=== PATIENT | female | born 1975 | race Caucasian/White ===

== ENCOUNTER 2017-04-29 13:13 | Emergency (ER) | payer OTHER ==
--- NOTE | 2017-04-29 13:49 | ED Physician Chart ---
ED Chief Complaint/HPI - Patient Information Date Seen:: 04/29/17 Time Seen:: 13:39 Chief Complaint:: Abdominal pain History of Present Illness:: 41 yo female, , had low abdominal pain and tenderness for 10 days. The tenderness could be 7/10 on palpation and would decrease to 0-1/10 without palpation. Denied N/V. She had urinary frequency and mild burning sensation. She had regular menstrual periods. She had an IUD for 8 years. She had intermittent postcoidal vaginal spotting for 5 months. She had similar pain 2 years ago and was diagnosed with ovarian cyst. Allergies:: Allergies Allergy/AdvReac Type Severity Reaction Status Date / Time No Known Allergies Allergy Verified 04/29/17 13:19 Vitals:: Vital Signs - 8 hr 04/29/17 13:19 Temp 98.7 F HR 73 RR 16 BP 124/94 O2 Sat % 98 ED Review of Systems - Review of Systems General/Constitutional: No fever Skin: No skin lesions Head: No headache Eyes: No loss of vision ENT: No earache Neck: No neck pain Cardio Vascular: No chest pain Pulmonary: No SOB GI: No nausea, No vomiting G/U: Frequency, No hematuria Musculoskeletal: No bone or joint pain ED Past Medical History - Past Medical History Past Medical History: Other (right ovarian cyst) Social History: Non Smoker, No Alcohol, No Drug Use Surgical History: (x1) Family Medical History - Family Member Father Hx Family Cancer: No Hx Family Coronary Artery Disease: No Hx Family Hypertension: No Hx Family Diabetes: No Hx Family Seizures: No Hx Family AIDS: No Hx Family COPD: No ED Physical Exam - Physical Examination General/Constitutional: Awake, Alert Head: Atraumatic Eyes: PERRL, EOMI Skin: No ecchymosis Neck: No nuchal rigidity Respiratory: Clear to Auscultation, No Wheeze/Rhonchi/Rales Cardio Vascular: RRR, No murmur, gallop, rubs, NL S1 S2 Other GI comments:: Low abdominal/suprapubic tenderness Other comments:: mild left CVA tenderness Extremities: normal strength in all extremities ( ) Neuro/Psych: No focal deficits ED Assessment - Assessment General Assessment: UTI Assessment/Comments:: Rocephin NS 1L bolus x 1 D/c home Bactrim DS Bid x 5 days F/u PCP or return to ER if symptoms worsen ED Septic Shock - . Is Septic Shock (SBP<90, OR Lactate>4 mmol\L) present?: No - <6hrs of presentation: Vital Signs: Vital Signs - 8 hr 04/29/17 13:19 Temp 98.7 F HR 73 RR 16 BP 124/94 O2 Sat % 98 ED Reassessment (Disposition) - Reassessment Reassessment Condition:: Improved - Patient Disposition Discharge/Transfer:: Home ED Discharge Plan - Patient Disposition Prescriptions: Sulfamethoxazole/TMP [Bactrim Ds] 1 tab PO BID #10 tab Instructions: Urinary Retention, Acute, Female
[2017-04-29 14:09] LABS: URINE MICROSCOPIC INDICATED? YES; URINE SOURCE RANDOM
[2017-04-29 14:11] LABS: URINE BILIRUBIN NEGATIVE (NEGATIVE); URINE BLOOD MODERATE (NEGATIVE); URINE GLUCOSE (UA) NEGATIVE (NEGATIVE); URINE KETONE NEGATIVE (NEGATIVE); URINE LEUKOCYTE ESTERASE LARGE (NEGATIVE); URINE NITRATE NEGATIVE (NEGATIVE); URINE PH 6.5 (4.6 - 8.0); URINE PROTEIN NEGATIVE (NEGATIVE); URINE UROBILINOGEN 0.2 E.U./dL (0.2 - 1.0)
[2017-04-29 14:11] LABS: % BASOPHILS 0.7 % (0.0-2.0); % EOSINOPHILS 1.9 % (0.0-5.0); % LYMPHOCYTES 35.6 % (20.0-50.0); % MONOCYTES 4.5 % (2.0-10.0); % NEUTROPHILS 57.3 % (40.0-80.0); BASOPHILE ABSOLUTE 0.1 Th/cumm (0-0.2); EOSINOPHILE ABSOLUTE 0.1 Th/cmm (0.1-0.4); HEMATOCRIT 43.2 % (41.0-60); HEMOGLOBIN 14.2 gm/dL (12-16); LYMPHOCYTE ABSOLUTE 2.7 Th/cmm (1.5-3.0); MEAN CELL VOLUME 84.3 fl (81-100); MEAN CORPUSCULAR HEMOGLOBIN 27.6 pg (27.0-31.0); MEAN CORPUSCULAR HGB CONC 32.7 pg (28.0-36.0); MEAN PLATELET VOLUME 8.8 fl; MONOCYTE ABSOLUTE 0.3 Th/cmm (0.3-1.0); NEUTROPHILE ABSOLUTE 4.5 Th/cmm (1.8-8.0); PLATELET COUNT 282 Th/cmm (150-400); RED BLOOD COUNT 5.13 Mil/cmm (3.80-5.10); RED CELL DISTRIBUTION WIDTH 12.4 % (11.5-20.0); WHITE BLOOD COUNT 7.7 Th/cmm (4.8-10.8)
[2017-04-29 14:27] LABS: URINE CLARITY HAZY (CLEAR); URINE COLOR YELLOW
[2017-04-29 14:27] LABS: ALB/GLOB RATIO 1.5 (1.0-1.8); ALBUMIN 4.6 gm/dL (3.7-5.3); ALKALINE PHOSPHATASE 35 U/L (34-104); ANION GAP 11.7 (7.0-16.0); BILIRUBIN,TOTAL 0.5 mg/dL (0.3-1.0); BUN - UREA NITROGEN 11 mg/dL (7-25); CALCIUM SERUM 9.8 mg/dL (8.6-10.3); CARBON DIOXIDE 22.4 mEq/L (21.0-31.0); CHLORIDE 103 mEq/L (98-107); CREATININE - SERUM 0.8 mg/dL (0.6-1.2); GFR AFRICAN-AMERICAN > 60.0 ml/min (>90); GFR NON AFRICAN-AMERICAN > 60.0 ml/min; GLUCOSE 94 mg/dL (70-105); POTASSIUM SERUM 3.1 mEq/L (3.5-5.1); SGOT 16 U/L (13-39); SGPT/ALT 14 U/L (7-52); SODIUM SERUM 134 mEq/L (136-145); TOTAL PROTEIN,SERUM 7.6 gm/dL (6.0-8.3)
[2017-04-29 14:29] LABS: URINE BACTERIA FEW /hpf (NONE SEEN); URINE EPITHELIAL CELLS NONE SEEN /lpf (FEW)
[2017-04-29] MEDS ORDERED: cefTRIAXone 1 GM in Sodium Chloride 0.9% 50 ML IV ONE (14:32)
[2017-04-29] MEDS ORDERED: Sodium Chloride 0.9% 1,000 ML IV ONE (14:40)
[2017-04-29] MEDS ORDERED: Sulfamethoxazole/TMP 800/160mg Tab PO SCH (17:00)
--- NOTE | 2017-04-30 09:43 | Diagnostic Imaging Report ---
Abdominal ultrasound HISTORY: Pain The liver exhibits a normal size with a homogeneous parenchyma. No focal lesions. The gallbladder appears normal. No calculi are seen. No biliary dilatation. The pancreas cannot be seen due to bowel gas. The kidneys appear normal bilaterally. No other retroperitoneal or intra-abdominal abnormalities. IMPRESSION: Negative examination.
== END 2017-04-29 16:20 | disposition home or self-care (01) ==
LOC: ER 13:13
DX: N39.0 Urinary tract infection, site not specified (principal)
CPT/HCPCS: 99285; 96365; 76700; 36415; 85025; 87086; 81001; 80053; J0696; J7030

== ENCOUNTER 2017-06-18 15:53 | Emergency (ER) | payer OTHER ==
[2017-06-18 16:14] LABS: URINE MICROSCOPIC INDICATED? YES; URINE SOURCE CLEAN C
[2017-06-18 16:23] LABS: URINE BILIRUBIN NEGATIVE (NEGATIVE); URINE BLOOD MODERATE (NEGATIVE); URINE GLUCOSE (UA) NEGATIVE (NEGATIVE); URINE KETONE TRACE mg/dL (NEGATIVE); URINE LEUKOCYTE ESTERASE NEGATIVE (NEGATIVE); URINE NITRATE NEGATIVE (NEGATIVE); URINE PH 5.5 (4.6 - 8.0); URINE PROTEIN NEGATIVE (NEGATIVE); URINE UROBILINOGEN 0.2 E.U./dL (0.2 - 1.0)
[2017-06-18 16:27] LABS: URINE CLARITY CLEAR (CLEAR); URINE COLOR YELLOW
[2017-06-18 16:28] LABS: URINE BACTERIA FEW /hpf (NONE SEEN); URINE EPITHELIAL CELLS FEW /lpf (FEW); URINE WBC 0-2 /hpf (0-5)
--- NOTE | 2017-06-18 16:36 | ED Physician Chart ---
ED Chief Complaint/HPI - Patient Information Date Seen:: 06/18/17 Time Seen:: 16:33 Chief Complaint:: MICROSCOPIC HEMATURIA noted by her doctor. Allergies:: Allergies Allergy/AdvReac Type Severity Reaction Status Date / Time No Known Allergies Allergy Verified 04/29/17 13:19 Vitals:: Vital Signs - 8 hr 06/18/17 16:01 Temp 98.3 F HR 83 RR 14 BP 134/83 O2 Sat % 100 ED Review of Systems - Review of Systems General/Constitutional: No fever, No chills, No weight loss, No weakness, No diaphoresis, No loss of appetite Head: No light-headedness Eyes: No loss of vision ENT: No nasal drainage, No sore throat Neck: No swelling, No stiffness Cardio Vascular: No chest pain, No palpitations, No PND, No edema Pulmonary: No SOB, No cough, No sputum, No wheezing GI: No nausea, No vomiting, No diarrhea, No constipation, No hematemesis G/U: No dysuria, No frequency, Other (HEMATURIA ON UA) Musculoskeletal: No bone or joint pain, No muscle pain Endocrine: No polyuria, No polydipsia Psychiatric: No prior psych history, No depression, No suicidal ideation Hematopoietic: No bruising, No lymphadenopathy Allergic/Immuno: No urticaria, No angioedema Neurological: No syncope, No weakness, No headache, No seizure, No dizziness, No vertigo ED Past Medical History - Past Medical History Social History: Non Smoker, No Alcohol, No Drug Use Surgical History: (DOG BITE 2 WKS AGO, PLACED ON AUGMENTIN BY PMD) Family Medical History - Family Member Father Hx Family Cancer: No Hx Family Coronary Artery Disease: No Hx Family Hypertension: No Hx Family Diabetes: No Hx Family Seizures: No Hx Family AIDS: No Hx Family COPD: No ED Physical Exam - Physical Examination General/Constitutional: Awake, Well-developed, well-nourished, Alert, No distress, Non-toxic appearing, Ambulatory Head: Atraumatic Eyes: Lids, conjuctiva normal, PERRL, EOMI Skin: Nl inspection, No rash, No skin lesions, No ecchymosis, Well hydrated, No lymphadenopathy Other Skin comments:: No petechiae or telangectasia. ENMT: External ears, nose nl, Nasal exam nl, Lips, teeth, gums nl, Oropharynx nl Other ENMT comments:: No mucosal telangectasisa Neck: Full ROM w/o pain, No JVD, No nuchal rigidity, No bruit, No mass, No stridor Respiratory: Nl effort/Exclusion, No Wheeze/Rhonchi/Rales Cardio Vascular: RRR, No murmur, gallop, rubs, NL S1 S2 ( Normal peripheral pulses.) GI: No tenderness/rebounding/guarding, No organomegaly, No hernia, Nondistended , No mass/bruits, No McBurney tenderness ( No rectal examination at my discretion.) : No CVA tenderness Extremities: No tenderness or effusion, Full ROM, normal strength in all extremities, No edema, Normal digits & nails Neuro/Psych: Normal sensory exam, Normal motor strength, Judgement/insight normal, Mood normal, Normal gait, No focal deficits Misc: Normal back, No paraspinal tenderness ED Labs/Radiology/EKG Results - Lab Results Results: Laboratory Tests 06/18/17 06/18/17 16:11 16:11 Urine Source CLEAN C Urine Color YELLOW Urine Clarity CLEAR Urine pH 5.5 Ur Specific [place] >= 1.030 Urine Protein NEGATIVE Urine Glucose (UA) NEGATIVE Urine Ketones TRACE Urine Blood MODERATE H Urine Nitrate NEGATIVE Urine Bilirubin NEGATIVE Urine Urobilinogen 0.2 Ur Leukocyte Esterase NEGATIVE Urine RBC 5-10 H Urine WBC 0-2 Ur Epithelial Cells FEW Urine Bacteria FEW Urine Test NEGATIVE Microscopic hematuria. Ultrasound examination of the kidneys and bladder was negative for any renal masses or cysts. A single 0.5 cm calculus was noted in the pelvis of the right kidney. There was no associated hydronephrosis. The right kidney and bladder were Normal. ED Assessment - Assessment General Assessment: CASE SUMMARY: this 41-year-old female came to the emergency department for evaluation of microscopic hematuria discovered by her primary care physician. She was treated for UTI in May of this year with resolution of dysuria, frequency and urgency. On recheck the patient had continuous hematuria. A repeat UA in the emergency department confirmed the presence of intact red blood cells. There was no evidence for residual UTI. A renal ultrasound examination was positive for the presence of a small snow in the left kidney. There was no associated hydronephrosis. While this was consistent with hematuria it did not rule out the possibility for cancer and the patient was advised to obtain a urology referral from her primary care physician. MDM DDX MICROSCOPIC HEMATURIA: NOT Renal contusion based on patients history. NOT UTI Based on UA results. LOW RISK FOR urinary or bladder mass Based on ultrasound results of the kidneys and urinary bladder. ED Septic Shock - . Is Septic Shock (SBP<90, OR Lactate>4 mmol\L) present?: No - <6hrs of presentation: Vital Signs: Vital Signs - 8 hr 06/18/17 16:01 Temp 98.3 F HR 83 RR 14 BP 134/83 O2 Sat % 100 ED Reassessment (Disposition) - Reassessment Reassessment Condition:: Unchanged - Diagnosis Diagnosis:: HEMATURIA, LEFT RENAL STONE. FOLLOW UP WITH YOUR REGULAR DOCTOR AND REQUEST REFERAL TO UROLOGIST FOR FURTHER EVALUATION OF HEMATURIA AND LEFT RENAL STONE. RETURN TO THE ER IF YOUR SYMPTOMS WORSEN. ED Discharge Plan - Patient Disposition Admit/Discharge/Transfer: PT DISCHARGED HOME Condition at Disposition: Stable Instructions: Kidney Stones, [id number], Hematuria, Adult
--- NOTE | 2017-06-19 10:43 | Diagnostic Imaging Report ---
Renal ultrasound HISTORY: Microscopic hematuria The right kidney measures 9.7 x 4.3 x 4.3 cm. No focal lesions. No hydronephrosis. The left kidney measures 9.5 x 5.3 x 5.5 cm. There is deformity limited echogenic density within the medullary region. A small calculus cannot be excluded. No hydronephrosis. No intraluminal abnormality seen within the urinary bladder. IMPRESSION: 4 mm echogenic density within the medullary region of the left kidney. This may be related to a calculus. If needed, a CT scan would provide additional assessment.
== END 2017-06-18 18:54 | disposition home or self-care (01) ==
LOC: ER 15:53
DX: R31.9 Hematuria, unspecified (principal); N20.0 Calculus of kidney
CPT/HCPCS: 76770-TC; 81001-TC; 81025-TC; 87086-90; Z7502

== ENCOUNTER 2017-06-20 15:57 | Emergency (ER) | payer OTHER ==
--- NOTE | 2017-06-20 16:31 | ED Physician Chart ---
ED Chief Complaint/HPI - Patient Information Date Seen:: 06/20/17 Time Seen:: 16:20 Chief Complaint:: HERE FOR CT SCAN OF LT KIDNEY SINCE US SHOWED SMALL STONE. MICRO HEMATURIA History of Present Illness:: 41-YEAR-OLD FEMALE WAS RECENTLY SEEN IN THE EMERGENCY DEPARTMENT FOR EVALUATION OF MICROSCOPIC HEMATURIA. URINALYSIS SHOWED THE PATIENT HAD INTACT RED BLOOD CELLS AND IT DIPPED POSITIVE FOR HEME. AN ULTRASOUND OF THE KIDNEYS WAS OBTAINED AND A DENSITY IN THE LEFT RENAL PELVIS APPEAR TO SHOW A STONE. THE PATIENT'S PRIMARY PHYSICIAN IS REQUESTING THAT A CT SCAN OF THE LEFT KIDNEY BE OBTAINED TO BETTER CHARACTERIZE THE ABNORMALITY SEEN ON ULTRASOUND. PATIENT HAS NO NEW SYMPTOMS. Allergies:: Allergies Allergy/AdvReac Type Severity Reaction Status Date / Time No Known Allergies Allergy Verified 04/29/17 13:19 Vitals:: Vital Signs - 8 hr 06/20/17 16:19 Temp 98.3 F HR 100 RR 16 BP 152/98 O2 Sat % 100 ED Review of Systems - Review of Systems General/Constitutional: No fever, No chills, No weight loss, No weakness, No diaphoresis, Loss of appetite Skin: No skin lesions, No bruising Head: No headache Eyes: No loss of vision, No pain, No diplopia ENT: No sore throat Neck: No thyromegaly, No stiffness Cardio Vascular: No PND, No orthopnea Pulmonary: No sputum G/U: No frequency, No hematuria 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 Is Septic Shock (SBP<90, OR Lactate>4 mmol\L) present?: No - <6hrs of presentation: Vital Signs: Vital Signs - 8 hr 06/20/17 16:19 Temp 98.3 F HR 100 RR 16 BP 152/98 O2 Sat % 100 ED Discharge Plan - Patient Disposition Admit/Discharge/Transfer: PT DISCHARGED HOME Condition at Disposition: Stable Instructions: Hematuria, Adult Additional Instructions: Pls follow up with PCP in 1-2 days. Return to ER if symptoms worsen.
--- NOTE | 2017-06-21 09:31 | Diagnostic Imaging Report ---
CT scan of the abdomen and pelvis without intravenous contrast History: Pain Total DLP equals 429 CTDI equals 9.0 Axial sections were obtained from the xiphoid process down to the pubic symphysis. The liver demonstrates a normal size and contour. No focal lesions are seen. The spleen appears normal. No abnormalities are seen in the region of the pancreas. The kidneys appear normal bilaterally. The exam of the pelvis demonstrates preservation of normal fat planes. No abnormal soft tissue masses. No abnormal fluid collections. An ICD is seen within the uterus. No abnormality seen in the region of the appendix. Impression: No acute abnormalities
== END 2017-06-20 17:40 | disposition home or self-care (01) ==
LOC: ER 15:57
DX: R31.9 Hematuria, unspecified (principal)
CPT/HCPCS: 81025-TC; Z7502